=== PATIENT | male | born 1985 | race Caucasian/White ===

== ENCOUNTER 2017-09-05 20:48 | Inpatient (IN) | payer OTHER ==
[2017-09-05] MEDS: IV NORMAL SALINE 1000ML BAG 1,000 ML IV (07:52)
[2017-09-05] MEDS: ASPIRIN CHEWABLE 81 MG TABLET. PO (21:15)
[2017-09-05] MEDS ORDERED: NITROGLYCERIN OINT 1 GM PACKET. (21:15)
[2017-09-05] MEDS ORDERED: NITROGLYCERIN SUBLINGUAL 0.4 MG BOTTLE OF 25. SL ×2 (21:15→22:30)
[2017-09-05] MEDS ORDERED: ASPIRIN 325 MG TABLET (21:15)
[2017-09-05 21:22] LABS: ADD MAN DIFF? NO
[2017-09-05 21:25] LABS: BASO # 0.1 x10^3/uL (0.0-0.2); BASO % 1 % (0-3); EOS % 2 % (0-3); HEMATOCRIT 47.1 % (39.0-53.0); LYMPH % 30 % (24-48); MEAN CORPUSCULAR HEMOGLOBIN 31 pg (25-35); MEAN CORPUSCULAR HGB CONC 34 g/dL (31-37); MEAN CORPUSCULAR VOLUME 91 fL (79-100); MONO % 11 % (0-9); NEUT % 56 % (31-73); PLATELET COUNT 233 x10^3/uL (140-400); RED BLOOD COUNT 5.17 x10^6/uL (4.30-5.70); RED CELL DISTRIBUTION WIDTH 13.3 % (11.5-14.5)
[2017-09-05] MEDS: NITROGLYCERIN OINT 1 GM PACKET. TP (21:29)
[2017-09-05] MEDS: NITROGLYCERIN SUBLINGUAL 0.4 MG BOTTLE OF 25. SL (21:30)
[2017-09-05 21:48] LABS: ANION GAP 14 (6-14); BLOOD UREA NITROGEN 12 mg/dL (8-26); BUN/CREATININE RATIO 12 (6-20); CARBON DIOXIDE 25 mmol/L (21-32); CHLORIDE 102 mmol/L (98-107); GFR 87.2; GLUCOSE 127 mg/dL (70-99); POTASSIUM 4.3 mmol/L (3.5-5.1); SODIUM 141 mmol/L (136-145)
[2017-09-05 21:53] LABS: ALBUMIN 4.1 g/dL (3.4-5.0); ALBUMIN/GLOBULIN RATIO 1.2 (1.0-1.7); ALK PHOS 48 U/L (46-116); ALT (SGPT) 63 U/L (16-63); AST (SGOT) 36 U/L (15-37); TOTAL BILIRUBIN 0.2 mg/dL (0.2-1.0); TOTAL PROTEIN 7.5 g/dL (6.4-8.2)
[2017-09-05 21:56] LABS: TROPONINI < 0.017 ng/mL (0.000-0.055)
[2017-09-05] MEDS ORDERED: ONDANSETRON PF 4 MG/2 ML VIAL. IV (22:30)
[2017-09-05] MEDS ORDERED: MORPHINE SULFATE 4 MG/ML DISP.SYRIN. IV (22:30)
[2017-09-06] MEDS: IV NORMAL SALINE 1000ML BAG 1,000 ML IV ×2 (00:22→07:50)
[2017-09-06] MEDS: ACETAMINOPHEN 325 MG TABLET. PO (04:08)
[2017-09-06 05:29] LABS: TROPONINI < 0.017 ng/mL (0.000-0.055)
[2017-09-06 10:50] LABS: TROPONINI < 0.017 ng/mL (0.000-0.055)
== END 2017-09-06 14:45 | disposition home or self-care (01) | DRG 313 ==
LOC: ER 20:48 → 5 NORTH 22:43
DX: R07.89 Other chest pain (principal); Z68.41 Body mass index [BMI] 40.0-44.9, adult; I10 Essential (primary) hypertension; E66.9 Obesity, unspecified; Z82.49 Family history of ischemic heart disease and other diseases of the circulatory system; Z87.891 Personal history of nicotine dependence; Z88.2 Allergy status to sulfonamides
CPT/HCPCS: 36415; 71010; 78452; 80053; 84484; 85025; 93005; 93017; 96374; 99406; A9500; J7030

== ENCOUNTER 2020-10-02 00:40 | Observation (INO) | payer OTHER ==
[~2020-10-02] VITALS: Ht 175.3 cm; Wt 112.2 kg
[2020-10-02] VITALS (8 sets, daily range): BP systolic 110–154; BP diastolic 53–113
[~2020-10-02 00:40] MED LIST: AMLO-187 PO; BUPR300T92 PO; CETI10TA74 PO; LISI20TA18 PO; LOSA100T14 PO; METO-269 PO
[2020-10-02] MEDS ORDERED: ONDANSETRON PF 4 MG/2 ML VIAL. IVP ONE (01:15)
[2020-10-02] MEDS ORDERED: IV NORMAL SALINE 1000ML BAG 1,000 ML IV SCH (01:15)
[2020-10-02] MEDS ORDERED: CONTRAST GIVEN. MC PRN (01:45)
[2020-10-02] MEDS ORDERED: IOHEXOL 300 MG/ML 100ML VIAL. IV ONE (01:45)
--- NOTE | 2020-10-02 01:45 | PHYS DOC ---
Past Medical History Past Medical History: Hypertension, Other Additional Past Medical Histor: ABNORMAL HEART RHYTHM Past Surgical History: Tonsillectomy Additional Past Surgical Histo: Adenoids Smoking Status: Current Every Day Smoker Alcohol Use: Occasionally Drug Use: None Adult General Chief Complaint Chief Complaint: MULTIPLE COMPLAINTS HPI HPI Patient is a 35 year old male with no significant past medical history presenting the emergency department complaining of new onset of abdominal pain. Patient states that over the last 8 hours he has been having worsening sensation of pain primarily in the lower abdominal region. Patient said that since that time he is also been feeling generally unwell sensation of chills. Has not 1 episode of nonbloody numbers vomiting. Denies any chest pain, diarrhea, dysuria pyuria Review of Systems Review of Systems Constitutional: Denies fever or chills [] Eyes: Denies change in visual acuity, redness, or eye pain [] HENT: Denies nasal congestion or sore throat [] Respiratory: Denies cough or shortness of breath [] Cardiovascular: No additional information not addressed in HPI [] GI: Denies abdominal pain, nausea, vomiting, bloody stools or diarrhea [] : Denies dysuria or hematuria [] Musculoskeletal: Denies back pain or joint pain [] Integument: Denies rash or skin lesions [] Neurologic: Denies headache, focal weakness or sensory changes [] Endocrine: Denies polyuria or polydipsia [] All other systems were reviewed and found to be within normal limits, except as documented in this note. Current Medications Current Medications Current Medications Medications (Trade) Dose Ordered Sig/Abdi Start Time Stop Time Status Last Admin Dose Admin Cefazolin Sodium (Ancef) 1 gm 1X ONCE 10/02/20 03:45 10/02/20 03:47 DC 10/02/20 03:57 1 GM Info (CONTRAST GIVEN -- Rx MONITORING) 1 each PRN DAILY PRN 10/02/20 01:45 10/04/20 01:44 Iohexol (Omnipaque 300 Mg/ml) 75 ml 1X ONCE 10/02/20 01:45 10/02/20 01:46 DC 10/02/20 02:49 75 ML Ketorolac Tromethamine (Toradol 15mg Vial) 15 mg 1X ONCE 10/02/20 03:45 10/02/20 03:47 DC 10/02/20 03:54 15 MG Metronidazole 100 ml @ 100 mls/hr 1X ONCE 10/02/20 03:45 10/02/20 04:44 DC 10/02/20 03:59 100 MLS/HR Morphine Sulfate (Morphine Sulfate) 4 mg PRN Q2HR PRN 10/02/20 04:00 10/02/20 11:34 DC 10/02/20 06:11 4 MG Ondansetron HCl (Zofran) 4 mg PRN Q8HRS PRN 10/02/20 04:00 10/02/20 11:34 DC Sodium Chloride 1,000 ml @ 1,000 mls/hr Q1H 10/02/20 01:15 10/02/20 02:14 DC 10/02/20 01:35 1,000 MLS/HR Allergies Allergies Physical Exam Physical Exam Constitutional: Well developed, well nourished, no acute distress, non-toxic appearance. [] HENT: Normocephalic, atraumatic, bilateral external ears normal, oropharynx moist, no oral exudates, nose normal. [] Eyes: PERRLA, EOMI, conjunctiva normal, no discharge. [] Neck: Normal range of motion, no tenderness, supple, no stridor. [] Cardiovascular:Heart rate regular rhythm, no murmur [] Lungs & Thorax: Bilateral breath sounds clear to auscultation [] Abdomen: Bowel sounds normal, soft, right lower quadrant tenderness without significant guarding or rebound, no masses, no pulsatile masses. [] Skin: Warm, dry, no erythema, no rash. [] Back: No tenderness, no CVA tenderness. [] Extremities: No tenderness, no cyanosis, no clubbing, ROM intact, no edema. [] Neurologic: Alert and oriented X 3, normal motor function, normal sensory function, no focal deficits noted. [] Psychologic: Affect normal, judgement normal, mood normal. [] Current Patient Data Vital Signs Vital Signs Date Time Temp Pulse Resp B/P (MAP) Pulse Ox O2 Delivery O2 Flow Rate FiO2 10/02/20 04:24 84 128/69 (88) 96 Room Air 10/02/20 03:55 18 10/02/20 00:49 97.8 97.8 Lab Values Laboratory Tests Test 10/02/20 01:30 10/02/20 01:50 10/02/20 04:41 White Blood Count 18.2 x10^3/uL (4.0-11.0) H Red Blood Count 4.83 x10^6/uL (4.30-5.70) Hemoglobin 15.1 g/dL (13.0-17.5) Hematocrit 44.1 % (39.0-53.0) Mean Corpuscular Volume 91 fL (79-100) Mean Corpuscular Hemoglobin 31 pg (25-35) Mean Corpuscular Hemoglobin Concent 34 g/dL (31-37) Red Cell Distribution Width 13.2 % (11.5-14.5) Platelet Count 199 x10^3/uL (140-400) Neutrophils (%) (Auto) 85 % (31-73) H Lymphocytes (%) (Auto) 6 % (24-48) L Monocytes (%) (Auto) 9 % (0-9) Eosinophils (%) (Auto) 0 % (0-3) Basophils (%) (Auto) 0 % (0-3) Neutrophils # (Auto) 15.4 x10^3/uL (1.8-7.7) H Lymphocytes # (Auto) 1.0 x10^3/uL (1.0-4.8) Monocytes # (Auto) 1.7 x10^3/uL (0.0-1.1) H Eosinophils # (Auto) 0.0 x10^3/uL (0.0-0.7) Basophils # (Auto) 0.0 x10^3/uL (0.0-0.2) Segmented Neutrophils % 77 % (35-66) H Band Neutrophils % 12 % (0-9) H Lymphocytes % 8 % (24-48) L Monocytes % 3 % (0-10) Platelet Estimate Adequate (ADEQUATE) Sodium Level 140 mmol/L (136-145) Potassium Level 3.7 mmol/L (3.5-5.1) Chloride Level 103 mmol/L (98-107) Carbon Dioxide Level 24 mmol/L (21-32) Anion Gap 13 (6-14) Blood Urea Nitrogen 12 mg/dL (8-26) Creatinine 0.8 mg/dL (0.7-1.3) Estimated GFR (Cockcroft-Gault) 110.7 BUN/Creatinine Ratio 15 (6-20) Glucose Level 123 mg/dL (70-99) H Calcium Level 8.9 mg/dL (8.5-10.1) Total Bilirubin 0.8 mg/dL (0.2-1.0) Direct Bilirubin 0.1 mg/dL (0.0-0.2) Aspartate Amino Transferase (AST) 18 U/L (15-37) Alanine Aminotransferase (ALT) 41 U/L (16-63) Alkaline Phosphatase 50 U/L (46-116) Total Protein 7.3 g/dL (6.4-8.2) Albumin 3.9 g/dL (3.4-5.0) Albumin/Globulin Ratio 1.1 (1.0-1.7) Lipase 75 U/L (73-393) Urine Collection Type Unknown Urine Color Yellow Urine Clarity Clear Urine pH 6.5 (<5.0-8.0) Urine Specific [place] 1.020 (1.000-1.030) Urine Protein Negative mg/dL (NEG-TRACE) Urine Glucose (UA) Negative mg/dL (NEG) Urine Ketones (Stick) >=80 mg/dL (NEG) Urine Blood Negative (NEG) Urine Nitrite Negative (NEG) Urine Bilirubin Negative (NEG) Urine Urobilinogen Dipstick 0.2 mg/dL (0.2 mg/dL) Urine Leukocyte Esterase Negative (NEG) Urine RBC 1-2 /HPF (0-2) Urine WBC 1-4 /HPF (0-4) Urine Squamous Epithelial Cells None /LPF Urine Bacteria 0 /HPF (0-FEW) Urine Mucus Slight /LPF SARS-CoV-2 Antigen (Rapid) Negative (NEGATIVE) Laboratory Tests 10/02/20 01:30 Laboratory Tests 10/02/20 01:30 EKG EKG [] Radiology/Procedures Radiology/Procedures [] Course & Med Decision Making Course & Med Decision Making Pertinent Labs and Imaging studies reviewed. (See chart for details) 35-year-old male presenting with new onset of right lower quadrant abdominal pain with tenderness as well as nausea and vomiting. At this time will obtain abdominal labs and plan for CT scan with contrast to be sure there is no evidence of acute appendicitis. CT scan demonstrating acute appendictiis. Discussed with surgical team, patient admitted, started on IV fluids with anticipated surgery for tomorrow Dragon Disclaimer Dragon Disclaimer This electronic medical record was generated, in whole or in part, using a voice recognition dictation system. Departure Departure Disposition: 09 ADMITTED INPT THIS HOSP Condition: GOOD Referrals: NURY SCHNEIDER MD (PCP) IBAN GORDON MD Oct 02, 2020 01:45
[2020-10-02 01:46] LABS: BASO % 0 % (0-3); EOS % 0 % (0-3); HEMATOCRIT 44.1 % (39.0-53.0); HEMOGLOBIN 15.1 g/dL (13.0-17.5); LYMPH % 6 % (24-48); MEAN CORPUSCULAR HEMOGLOBIN 31 pg (25-35); MEAN CORPUSCULAR HGB CONC 34 g/dL (31-37); MEAN CORPUSCULAR VOLUME 91 fL (79-100); MONO # 1.7 x10^3/uL (0.0-1.1); MONO % 9 % (0-9); NEUT # 15.4 x10^3/uL (1.8-7.7); NEUT % 85 % (31-73); PLATELET COUNT 199 x10^3/uL (140-400); RED BLOOD COUNT 4.83 x10^6/uL (4.30-5.70); RED CELL DISTRIBUTION WIDTH 13.2 % (11.5-14.5); WHITE BLOOD COUNT 18.2 x10^3/uL (4.0-11.0)
[2020-10-02 02:01] LABS: CALCIUM 8.9 mg/dL (8.5-10.1); CREATININE 0.8 mg/dL (0.7-1.3); GFR 110.7; POTASSIUM 3.7 mmol/L (3.5-5.1)
[2020-10-02 02:06] LABS: ALBUMIN 3.9 g/dL (3.4-5.0); ALBUMIN/GLOBULIN RATIO 1.1 (1.0-1.7); DIRECT BILIRUBIN 0.1 mg/dL (0.0-0.2); TOTAL BILIRUBIN 0.8 mg/dL (0.2-1.0); TOTAL PROTEIN 7.3 g/dL (6.4-8.2)
[2020-10-02 02:08] LABS: BILIRUBIN,URINE NEGATIVE (NEG); CLARITY,URINE CLEAR; COLOR,URINE YELLOW; NITRITE,URINE NEGATIVE (NEG); PH,URINE 6.5 (<5.0-8.0); PROTEIN,URINE NEGATIVE (NEG-TRACE); UROBILINOGEN,URINE 0.2 mg/dL (0.2 mg/dL)
[2020-10-02 02:26] LABS: BACTERIA,URINE 0 /HPF (0-FEW)
[2020-10-02 02:52] LABS: % BANDS 12 % (0-9); % LYMPHS 8 % (24-48); % MONOS 3 % (0-10); % SEGS 77 % (35-66); PLT ESTIMATE ADEQUATE (ADEQUATE)
--- NOTE | 2020-10-02 03:28 | RAD ---
PQRS Compliance Statement: One or more of the following individualized dose reduction techniques were utilized for this examinat ion: 1. Automated exposure control 2. Adjustment of the mA and/or kV according to patient size 3. Use of iterative reconstruction technique CT ABDOMEN+PELVIS W Clinical Indication: Reason: abdominal pain, nausea, vomiting, weakness, cough, headache, shortness o f breath. Comparison: None. Technique: Helical CT imaging of the abdomen and pelvis is performed after 75 cc of Omnipaque 300 IV contrast. Oral contrast not administered. Findings: Mild groundglass opacities in the posterior left lower lobe. Minimal groundglass opacities posterior right lower lobe. Cardiac size normal. There is cholelithiasis. The liver, spleen, pancreas, and adrenal glands are normal. Abdominal aorta is normal caliber. There are bilateral round hypodensities of the kidneys that measure about a centim eter that are not definitively cysts. Largest hypodensities in the lower pole the right kidney and me asures 2.4 cm. This hypodensity has ill-defined margins. There is no hydronephrosis. There is no obvious abnormality of the stomach. There is no dilated small bowel. There is an appendic olith at the base of the appendix. There is a second appendicolith near the tip. The appendix is dila donnie measuring up to 1.4 cm in diameter. There is mild periappendiceal inflammation. There is no perfo ration. There is no periappendiceal abscess. There is mild sigmoid colon diverticulosis. There is no abdominal adenopathy or free fluid. The urinary bladder is normal. The prostate and seminal vesicles are normal. There is no pelvic free fluid. There is no acute bone abnormality. There is posterior disc osteophyte complex of T12/L1 resulting in moderate central canal stenosis. IMPRESSION: 1. Acute appendicitis. 2. Cholelithiasis. 3. There are bilateral renal hypodensities that are not definitely cysts. Recommend nonemergent steffanie l ultrasound. 4. Mild sigmoid colon diverticulosis. Electronically signed by: Easton Yan MD (10/02/2020 3:25 AM) [facility]
[2020-10-02] MEDS ORDERED: KETOROLAC 15 MG/ML VIAL. IVP ONE (03:45)
[2020-10-02] MEDS ORDERED: ceFAZolin SODIUM IV Push 1 GM VIAL. IVP ONE ×2 (03:45→10:11)
[2020-10-02] MEDS ORDERED: MORPHINE SULFATE 4 MG/ML VIAL. IV ONE (03:45)
[2020-10-02] MEDS ORDERED: MORPHINE SULFATE 4 MG/ML VIAL. IV PRN (04:00)
[2020-10-02] MEDS ORDERED: ONDANSETRON PF 4 MG/2 ML VIAL. IV PRN ×2 (04:00→11:00)
--- NOTE | 2020-10-02 06:23 | NUR ---
Pt. eats a keto diet Addendum: 10/02/20 at 0636 by RYAN BAKER RN Amended: Links added.
--- NOTE | 2020-10-02 06:42 | NUR ---
Pt. arrived on unit at 0600 by wheelchair from ED. Pt. is alert but is complaining of abdominal pain. Pain medication given around this time. Admission questions are done, as well as surgery consents. Call light is within reach with bed in lowest position. Will continue to monitor.
[2020-10-02] MEDS ORDERED: fentaNYL PF VIAL 100 MCG/2 ML VIAL IVP PRN ×2 (08:00)
[2020-10-02] MEDS ORDERED: MORPHINE SULFATE 2 MG/ML VIAL. IVP PRN (08:00)
[2020-10-02] MEDS ORDERED: PROCHLORPERAZINE 10 MG/2 ML VIAL. IVP PRN (08:00)
[2020-10-02] MEDS ORDERED: HYDROmorphone 2 MG/ML VIAL IVP PRN (08:00)
[2020-10-02] MEDS ORDERED: IV RINGERS,LACTATED 1000ML 1,000 ML IV SCH (08:00)
--- NOTE | 2020-10-02 08:27 | PDOC1 ---
History and Physical Date of Admission Date of Admission DATE: 10/02/20 TIME: 08:24 Identification/Chief Complaint Chief Complaint Right lower quadrant abdominal pain Source Source: Chart review, Patient History of Present Illness History of Present Illness 35-year-old male with 18-hour history of right lower quadrant abdominal pain nausea worsening pain prompted him to come to the emergency department for further evaluation CT scan shows signs consistent with acute appendicitis without rupture abscess. Incidental findings of cholelithiasis and diverticulosis of the sigmoid colon Past Medical History Cardiovascular: Other (Irregular heartbeat) Pulmonary: No pertinent hx GI: No pertinent hx Heme/Onc: No pertinent hx Hepatobiliary: No pertinent hx Psych: No pertinent hx Rheumatologic: No pertinent hx Infectious disease: No pertinent hx ENT: No pertinent hx Renal/: No pertinent hx Endocrine: No pertinent hx Dermatology: No pertinent hx Past Surgical History Past Surgical History: No pertinent history Family History Family History: No Significant, Heart Disease Family History: Parent Social History Smoke: <1 pack per day ALCOHOL: occassional Drugs: None Current Medications Current Medications Current Medications Sodium Chloride 1,000 ml @ 1,000 mls/hr Q1H IV Last administered on 10/02/20at 01:35; Start 10/02/20 at 01:15; Stop 10/02/20 at 02:14; Status DC Ondansetron HCl (Zofran) 4 mg 1X ONCE IVP Last administered on 10/02/20at 01:35; Start 10/02/20 at 01:15; Stop 10/02/20 at 01:17; Status DC Iohexol (Omnipaque 300 Mg/ml) 75 ml 1X ONCE IV Last administered on 10/02/20at 02:49; Start 10/02/20 at 01:45; Stop 10/02/20 at 01:46; Status DC Info (CONTRAST GIVEN -- Rx MONITORING) 1 each PRN DAILY PRN MC SEE COMMENTS; Start 10/02/20 at 01:45; Stop 10/04/20 at 01:44 Cefazolin Sodium (Ancef) 1 gm 1X ONCE IVP Last administered on 10/02/20at 03:57; Start 10/02/20 at 03:45; Stop 10/02/20 at 03:47; Status DC Metronidazole 100 ml @ 100 mls/hr 1X ONCE IV Last administered on 10/02/20at 03:59; Start 10/02/20 at 03:45; Stop 10/02/20 at 04:44; Status DC Morphine Sulfate (Morphine Sulfate) 4 mg 1X ONCE IV Last administered on 10/02/20at 03:55; Start 10/02/20 at 03:45; Stop 10/02/20 at 03:47; Status DC Ketorolac Tromethamine (Toradol 15mg Vial) 15 mg 1X ONCE IVP Last administered on 10/02/20at 03:54; Start 10/02/20 at 03:45; Stop 10/02/20 at 03:47; Status DC Ondansetron HCl (Zofran) 4 mg PRN Q8HRS PRN IV NAUSEA/VOMITING; Start 10/02/20 at 04:00; Stop 10/03/20 at 03:59 Morphine Sulfate (Morphine Sulfate) 4 mg PRN Q2HR PRN IV PAIN Last administered on 10/02/20at 06:11; Start 10/02/20 at 04:00; Stop 10/03/20 at 03:59 Fentanyl Citrate (Fentanyl 2ml Vial) 25 mcg PRN Q5MIN PRN IVP MILD PAIN 1-3; Start 10/02/20 at 08:00; Stop 10/03/20 at 07:59 Fentanyl Citrate (Fentanyl 2ml Vial) 50 mcg PRN Q5MIN PRN IVP MODERATE PAIN 4- 6; Start 10/02/20 at 08:00; Stop 10/03/20 at 07:59 Morphine Sulfate (Morphine Sulfate) 1 mg PRN Q10MIN PRN IVP SEVERE PAIN 7-10; Start 10/02/20 at 08:00; Stop 10/03/20 at 07:59 Ringer's Solution 1,000 ml @ 30 mls/hr Q24H IV ; Start 10/02/20 at 08:00; Stop 10/02/20 at 19:59 Hydromorphone HCl (Dilaudid) 0.5 mg PRN Q10MIN PRN IVP SEVERE PAIN 7-10, 2nd CHOICE; Start 10/02/20 at 08:00; Stop 10/03/20 at 07:59 Prochlorperazine Edisylate (Compazine) 5 mg PACU PRN PRN IVP NAUSEA, MRX1; Start 10/02/20 at 08:00; Stop 10/03/20 at 07:59 Active Scripts Active Reported Amlodipine Besylate 10 Mg Tablet 10 Mg PO HS Bupropion Xl (Bupropion Hcl) 300 Mg Tab.er.24h 1 Tab PO DAILY Toprol Xl (Metoprolol Succinate) 50 Mg Tab.er.24h 1 Tab PO DAILY Losartan Potassium 100 Mg Tablet 100 Mg PO DAILY Zyrtec (Cetirizine Hcl) 10 Mg Tablet 10 Mg PO Allergies Allergies: Coded Allergies: Sulfa (Sulfonamide Antibiotics) (Verified Allergy, Mild, 07/14/14) ROS Gastrointestinal: Yes Nausea, Yes Abdominal Pain Physical Exam General: Alert, Oriented X3, Cooperative, mild distress HEENT: Atraumatic, EOMI Lungs: Clear to auscultation, Normal air movement Heart: RRR, no murmurs Abdomen: Normal bowel sounds, Soft, Other (Tender to palpation right lower quadrant) Rectal Exam: not examined Extremities: No edema Skin: No significant lesion Neuro: Normal speech Psych/Mental Status: Mental status NL Vitals Vitals Vital Signs Date Time Temp Pulse Resp B/P (MAP) Pulse Ox O2 Delivery O2 Flow Rate FiO2 10/02/20 07:29 Room Air 10/02/20 06:00 98.0 85 18 111/71 (84) 95 98.0 Labs Labs Laboratory Tests Test 10/02/20 01:30 10/02/20 01:50 10/02/20 04:41 White Blood Count 18.2 x10^3/uL (4.0-11.0) Red Blood Count 4.83 x10^6/uL (4.30-5.70) Hemoglobin 15.1 g/dL (13.0-17.5) Hematocrit 44.1 % (39.0-53.0) Mean Corpuscular Volume 91 fL (79-100) Mean Corpuscular Hemoglobin 31 pg (25-35) Mean Corpuscular Hemoglobin Concent 34 g/dL (31-37) Red Cell Distribution Width 13.2 % (11.5-14.5) Platelet Count 199 x10^3/uL (140-400) Neutrophils (%) (Auto) 85 % (31-73) Lymphocytes (%) (Auto) 6 % (24-48) Monocytes (%) (Auto) 9 % (0-9) Eosinophils (%) (Auto) 0 % (0-3) Basophils (%) (Auto) 0 % (0-3) Neutrophils # (Auto) 15.4 x10^3/uL (1.8-7.7) Lymphocytes # (Auto) 1.0 x10^3/uL (1.0-4.8) Monocytes # (Auto) 1.7 x10^3/uL (0.0-1.1) Eosinophils # (Auto) 0.0 x10^3/uL (0.0-0.7) Basophils # (Auto) 0.0 x10^3/uL (0.0-0.2) Segmented Neutrophils % 77 % (35-66) Band Neutrophils % 12 % (0-9) Lymphocytes % 8 % (24-48) Monocytes % 3 % (0-10) Platelet Estimate Adequate (ADEQUATE) Sodium Level 140 mmol/L (136-145) Potassium Level 3.7 mmol/L (3.5-5.1) Chloride Level 103 mmol/L (98-107) Carbon Dioxide Level 24 mmol/L (21-32) Anion Gap 13 (6-14) Blood Urea Nitrogen 12 mg/dL (8-26) Creatinine 0.8 mg/dL (0.7-1.3) Estimated GFR (Cockcroft-Gault) 110.7 BUN/Creatinine Ratio 15 (6-20) Glucose Level 123 mg/dL (70-99) Calcium Level 8.9 mg/dL (8.5-10.1) Total Bilirubin 0.8 mg/dL (0.2-1.0) Direct Bilirubin 0.1 mg/dL (0.0-0.2) Aspartate Amino Transf (AST/SGOT) 18 U/L (15-37) Alanine Aminotransferase (ALT/SGPT) 41 U/L (16-63) Alkaline Phosphatase 50 U/L (46-116) Total Protein 7.3 g/dL (6.4-8.2) Albumin 3.9 g/dL (3.4-5.0) Albumin/Globulin Ratio 1.1 (1.0-1.7) Lipase 75 U/L (73-393) Urine Collection Type Unknown Urine Color Yellow Urine Clarity Clear Urine pH 6.5 (<5.0-8.0) Urine Specific [place] 1.020 (1.000-1.030) Urine Protein Negative mg/dL (NEG-TRACE) Urine Glucose (UA) Negative mg/dL (NEG) Urine Ketones (Stick) >=80 mg/dL (NEG) Urine Blood Negative (NEG) Urine Nitrite Negative (NEG) Urine Bilirubin Negative (NEG) Urine Urobilinogen Dipstick 0.2 mg/dL (0.2 mg/dL) Urine Leukocyte Esterase Negative (NEG) Urine RBC 1-2 /HPF (0-2) Urine WBC 1-4 /HPF (0-4) Urine Squamous Epithelial Cells None /LPF Urine Bacteria 0 /HPF (0-FEW) Urine Mucus Slight /LPF SARS-CoV-2 Antigen (Rapid) Negative (NEGATIVE) Laboratory Tests Test 10/02/20 01:30 10/02/20 01:50 10/02/20 04:41 White Blood Count 18.2 x10^3/uL (4.0-11.0) Red Blood Count 4.83 x10^6/uL (4.30-5.70) Hemoglobin 15.1 g/dL (13.0-17.5) Hematocrit 44.1 % (39.0-53.0) Mean Corpuscular Volume 91 fL (79-100) Mean Corpuscular Hemoglobin 31 pg (25-35) Mean Corpuscular Hemoglobin Concent 34 g/dL (31-37) Red Cell Distribution Width 13.2 % (11.5-14.5) Platelet Count 199 x10^3/uL (140-400) Neutrophils (%) (Auto) 85 % (31-73) Lymphocytes (%) (Auto) 6 % (24-48) Monocytes (%) (Auto) 9 % (0-9) Eosinophils (%) (Auto) 0 % (0-3) Basophils (%) (Auto) 0 % (0-3) Neutrophils # (Auto) 15.4 x10^3/uL (1.8-7.7) Lymphocytes # (Auto) 1.0 x10^3/uL (1.0-4.8) Monocytes # (Auto) 1.7 x10^3/uL (0.0-1.1) Eosinophils # (Auto) 0.0 x10^3/uL (0.0-0.7) Basophils # (Auto) 0.0 x10^3/uL (0.0-0.2) Segmented Neutrophils % 77 % (35-66) Band Neutrophils % 12 % (0-9) Lymphocytes % 8 % (24-48) Monocytes % 3 % (0-10) Platelet Estimate Adequate (ADEQUATE) Sodium Level 140 mmol/L (136-145) Potassium Level 3.7 mmol/L (3.5-5.1) Chloride Level 103 mmol/L (98-107) Carbon Dioxide Level 24 mmol/L (21-32) Anion Gap 13 (6-14) Blood Urea Nitrogen 12 mg/dL (8-26) Creatinine 0.8 mg/dL (0.7-1.3) Estimated GFR (Cockcroft-Gault) 110.7 BUN/Creatinine Ratio 15 (6-20) Glucose Level 123 mg/dL (70-99) Calcium Level 8.9 mg/dL (8.5-10.1) Total Bilirubin 0.8 mg/dL (0.2-1.0) Direct Bilirubin 0.1 mg/dL (0.0-0.2) Aspartate Amino Transf (AST/SGOT) 18 U/L (15-37) Alanine Aminotransferase (ALT/SGPT) 41 U/L (16-63) Alkaline Phosphatase 50 U/L (46-116) Total Protein 7.3 g/dL (6.4-8.2) Albumin 3.9 g/dL (3.4-5.0) Albumin/Globulin Ratio 1.1 (1.0-1.7) Lipase 75 U/L (73-393) Urine Collection Type Unknown Urine Color Yellow Urine Clarity Clear Urine pH 6.5 (<5.0-8.0) Urine Specific [place] 1.020 (1.000-1.030) Urine Protein Negative mg/dL (NEG-TRACE) Urine Glucose (UA) Negative mg/dL (NEG) Urine Ketones (Stick) >=80 mg/dL (NEG) Urine Blood Negative (NEG) Urine Nitrite Negative (NEG) Urine Bilirubin Negative (NEG) Urine Urobilinogen Dipstick 0.2 mg/dL (0.2 mg/dL) Urine Leukocyte Esterase Negative (NEG) Urine RBC 1-2 /HPF (0-2) Urine WBC 1-4 /HPF (0-4) Urine Squamous Epithelial Cells None /LPF Urine Bacteria 0 /HPF (0-FEW) Urine Mucus Slight /LPF SARS-CoV-2 Antigen (Rapid) Negative (NEGATIVE) VTE Prophylaxis Ordered VTE Prophylaxis Devices: Yes VTE Pharmacological Prophylaxi: Contraindicated Assessment/Plan Assessment/Plan Acute appendicitis plan laparoscopic appendectomy Justifications for Admission Other Justification SHELLY DORANTES MD Oct 02, 2020 08:26
[2020-10-02] MEDS ORDERED: ONDANSETRON PF 4 MG/2 ML VIAL. ONE (09:36)
[2020-10-02] MEDS ORDERED: LIDOCAINE 2% PF 5 ML VIAL. ONE (09:36)
[2020-10-02] MEDS ORDERED: PROPOFOL 10 MG/ML (20ML) VIAL. IV ONE (09:36)
[2020-10-02] MEDS ORDERED: MIDAZOLAM HCL/PF 2 MG/2 ML VIAL. ONE (09:36)
[2020-10-02] MEDS ORDERED: fentaNYL PF VIAL 250 MCG/5 ML VIAL ONE (09:36)
[2020-10-02] MEDS ORDERED: DEXAMETHASONE SOD PHOS 4 MG/ML VIAL ONE (09:36)
[2020-10-02] MEDS ORDERED: ROCURONIUM 50 MG/5 ML VIAL. ONE (09:36)
[2020-10-02] MEDS ORDERED: BUPIVACAINE-EPI 0.25% 30 ML VIAL KIT. ONE (09:43)
[2020-10-02] MEDS ORDERED: SUCCINYLCHOLINE 200 MG/10 ML VIAL. ONE (10:06)
[2020-10-02] MEDS ORDERED: NEOSTIGMINE METHYLSULFATE 5 MG/5 ML SYRINGE. ONE (10:27)
[2020-10-02] MEDS ORDERED: GLYCOPYRROLATE 1 MG/5 ML VIAL. ONE (10:27)
[2020-10-02] MEDS ORDERED: KETOROLAC 30 MG/ML VIAL. ONE (10:38)
[2020-10-02] MEDS ORDERED: SEVOFLURANE 61 TO 120 MINUTES. IH ONE (10:51)
--- NOTE | 2020-10-02 10:53 | PDOC4 ---
Operative Note Operative Note Date: October [id number] at 1049 Preoperative diagnosis: Acute appendicitis Postoperative diagnosis: Same Procedure: Laparoscopic appendectomy Surgeon: Chemo Specimen: Appendix Dictation: Patient is 35-year-old male with right lower quadrant abdominal pain and a CT scan showing signs consistent with acute appendicitis. Procedure of laparoscopic appendectomy was explained to the patient in detail all risk benefits were also discussed including bleeding infection injury to intra- abdominal contents possible necessitating further open operations alternatives to this procedure also discussed with the patient who seemed to understand and gave both verbal and written consent to have the procedure performed. Patient was taken to the operating room placed in the supine position general anesthesia was initiated once patient was sleeping in bed his abdomen was prepped and draped usual sterile fashion using ChloraPrep. Area just above the umbilicus injected quarter percent Marcaine with epinephrine incision was made 11 blade scalpel and a varies needle was placed within the abdomen creating pneumoperitoneum once this was complete 12 mm port was placed in a 5 mm camera is placed within the abdomen which was inspected was noted that the appendix was inflamed with some exudate. No free fluid. A 5 mm port was placed in the right midabdomen and a 5 mm port was placed low in the left lower quadrant. The appendix was grasped retracted towards the anterior abdominal wall a window was propagated the base of the appendix through the mesoappendix with a [place] dissector a Endo DUANE stapler was used to staple and transect the base of the appendix a second load was used to staple and transect the mesoappendix. Append ix was then removed with an Endo Catch bag from the umbilicus right lower quadrant pelvis were irrigated and suctioned dry hemostasis deemed be appropriate the pneumoperitoneum was reduced all ports removed the fascial defect at the umbilicus was closed with a [id number] 0 Vicryl suture and the skin was reapproximated all port sites for subcuticular Monocryl Mastisol Steri-Strips and island dressings were applied. Patient was awakened and extubated operating room taken to recovery in stable condition all sponge instrument needle counts listed as correct estimated blood loss 20 mL SHELLY DORANTES MD Oct 02, 2020 10:52
[2020-10-02] MEDS ORDERED: MORPHINE SULFATE 2 MG/ML VIAL. IV PRN (11:00)
[2020-10-02] MEDS ORDERED: oxyCODONE/APAP 5/325 1 TAB TABLET PO PRN ×2 (11:00)
[2020-10-02] MEDS ORDERED: 0.9 % SODIUM CHLORIDE 10 ML DISP.SYRIN. IV PRN (11:00)
[2020-10-02] MEDS: IV DEXTROSE 5%-LACT RINGERS 1,000 ML IV SCH (11:37)
[2020-10-02] MEDS: KETOROLAC 15 MG/ML VIAL. IV SCH ×2 (12:19→16:25)
[2020-10-02] MEDS: cefOXitin SODIUM IV Push 1 GM VIAL. IVP SCH ×2 (12:21→19:16)
[2020-10-03] MEDS: KETOROLAC 15 MG/ML VIAL. IV SCH ×2 (00:11→06:04)
[2020-10-03] MEDS: IV DEXTROSE 5%-LACT RINGERS 1,000 ML IV SCH (00:56)
[2020-10-03 03:21] VITALS: BP 113/64
[2020-10-03] MEDS: cefOXitin SODIUM IV Push 1 GM VIAL. IVP SCH (05:27)
[2020-10-03 07:16] VITALS: BP 122/68
[2020-10-03 08:40] LABS: BASO % 0 % (0-3); EOS # 0.1 x10^3/uL (0.0-0.7); EOS % 1 % (0-3); HEMATOCRIT 40.7 % (39.0-53.0); HEMOGLOBIN 13.7 g/dL (13.0-17.5); LYMPH # 2.1 x10^3/uL (1.0-4.8); LYMPH % 28 % (24-48); MEAN CORPUSCULAR HEMOGLOBIN 31 pg (25-35); MEAN CORPUSCULAR HGB CONC 34 g/dL (31-37); MEAN CORPUSCULAR VOLUME 93 fL (79-100); MONO # 0.7 x10^3/uL (0.0-1.1); MONO % 9 % (0-9); NEUT # 4.7 x10^3/uL (1.8-7.7); NEUT % 62 % (31-73); PLATELET COUNT 177 x10^3/uL (140-400); RED CELL DISTRIBUTION WIDTH 13.2 % (11.5-14.5); WHITE BLOOD COUNT 7.6 x10^3/uL (4.0-11.0)
[2020-10-03 09:06] LABS: CALCIUM 8.4 mg/dL (8.5-10.1); CREATININE 0.9 mg/dL (0.7-1.3); GFR 96.6; POTASSIUM 3.4 mmol/L (3.5-5.1)
--- NOTE | 2020-10-03 09:36 | NUR ---
SW following. Discussed with RN, pt from home, room air, regular diet, rapid COVID-19 negative. Pt had surgery 10/02/20. RN anticipates pt may be able to discharge home today with self care. RN advised no SW needs at this time. SW will continue to follow.
[2020-10-03 10:32] VITALS: BP 129/73
[2020-10-03] MEDS ORDERED: OXYC1TAB15 PO (11:06)
--- NOTE | 2020-10-03 11:08 | DISCH ---
DISCHARGE INSTRUCTIONS Condition on Discharge Condition on Discharge: Stable Activity After Discharge Activity Instructions for Disc: Activity as tolerated Other activity instructions: can shower Lifting Instructions after Dis: No heavy lifting, No pulling or pushing Diet after Discharge Diet after Discharge: Regular Wound Incision Care Wound/Incision Care: May get incision wet, No wound care needed Contacting the after DC Call your doctor for: If your condition worsens Follow-Up Follow up with: Dr Mclain 2 weeks, call to schedule [phone] DENA CARPENTER APRN Oct 03, 2020 11:07
--- NOTE | 2020-10-03 11:09 | PDOC3 ---
Discharge Summary Visit Information Date of Admission: Oct 02, 2020 Date of Discharge: Oct 03, 2020 Admitting Diagnosis: acute appendicitis Final Diagnosis acute appendicitis Brief Hospital Course Allergies Allergies Coded Allergies Type Severity Reaction Last Updated Verified Sulfa (Sulfonamide Antibiotics) Allergy Intermediate 10/02/20 Yes Vital Signs Vital Signs Date Time Temp Pulse Resp B/P (MAP) Pulse Ox O2 Delivery O2 Flow Rate FiO2 10/03/20 10:32 97.9 83 18 129/73 (91) 95 Room Air 97.9 10/02/20 10:59 10 Lab Results Laboratory Tests Test 10/02/20 01:30 10/02/20 01:50 10/02/20 04:41 10/03/20 08:05 White Blood Count 18.2 x10^3/uL (4.0-11.0) 7.6 x10^3/uL (4.0-11.0) Red Blood Count 4.83 x10^6/uL (4.30-5.70) 4.40 x10^6/uL (4.30-5.70) Hemoglobin 15.1 g/dL (13.0-17.5) 13.7 g/dL (13.0-17.5) Hematocrit 44.1 % (39.0-53.0) 40.7 % (39.0-53.0) Mean Corpuscular Volume 91 fL (79-100) 93 fL (79-100) Mean Corpuscular Hemoglobin 31 pg (25-35) 31 pg (25-35) Mean Corpuscular Hemoglobin Concent 34 g/dL (31-37) 34 g/dL (31-37) Red Cell Distribution Width 13.2 % (11.5-14.5) 13.2 % (11.5-14.5) Platelet Count 199 x10^3/uL (140-400) 177 x10^3/uL (140-400) Neutrophils (%) (Auto) 85 % (31-73) 62 % (31-73) Lymphocytes (%) (Auto) 6 % (24-48) 28 % (24-48) Monocytes (%) (Auto) 9 % (0-9) 9 % (0-9) Eosinophils (%) (Auto) 0 % (0-3) 1 % (0-3) Basophils (%) (Auto) 0 % (0-3) 0 % (0-3) Neutrophils # (Auto) 15.4 x10^3/uL (1.8-7.7) 4.7 x10^3/uL (1.8-7.7) Lymphocytes # (Auto) 1.0 x10^3/uL (1.0-4.8) 2.1 x10^3/uL (1.0-4.8) Monocytes # (Auto) 1.7 x10^3/uL (0.0-1.1) 0.7 x10^3/uL (0.0-1.1) Eosinophils # (Auto) 0.0 x10^3/uL (0.0-0.7) 0.1 x10^3/uL (0.0-0.7) Basophils # (Auto) 0.0 x10^3/uL (0.0-0.2) 0.0 x10^3/uL (0.0-0.2) Segmented Neutrophils % 77 % (35-66) Band Neutrophils % 12 % (0-9) Lymphocytes % 8 % (24-48) Monocytes % 3 % (0-10) Platelet Estimate Adequate (ADEQUATE) Sodium Level 140 mmol/L (136-145) 143 mmol/L (136-145) Potassium Level 3.7 mmol/L (3.5-5.1) 3.4 mmol/L (3.5-5.1) Chloride Level 103 mmol/L (98-107) 107 mmol/L (98-107) Carbon Dioxide Level 24 mmol/L (21-32) 26 mmol/L (21-32) Anion Gap 13 (6-14) 10 (6-14) Blood Urea Nitrogen 12 mg/dL (8-26) 9 mg/dL (8-26) Creatinine 0.8 mg/dL (0.7-1.3) 0.9 mg/dL (0.7-1.3) Estimated GFR (Cockcroft-Gault) 110.7 96.6 BUN/Creatinine Ratio 15 (6-20) Glucose Level 123 mg/dL (70-99) 136 mg/dL (70-99) Calcium Level 8.9 mg/dL (8.5-10.1) 8.4 mg/dL (8.5-10.1) Total Bilirubin 0.8 mg/dL (0.2-1.0) Direct Bilirubin 0.1 mg/dL (0.0-0.2) Aspartate Amino Transf (AST/SGOT) 18 U/L (15-37) Alanine Aminotransferase (ALT/SGPT) 41 U/L (16-63) Alkaline Phosphatase 50 U/L (46-116) Total Protein 7.3 g/dL (6.4-8.2) Albumin 3.9 g/dL (3.4-5.0) Albumin/Globulin Ratio 1.1 (1.0-1.7) Lipase 75 U/L (73-393) Urine Collection Type Unknown Urine Color Yellow Urine Clarity Clear Urine pH 6.5 (<5.0-8.0) Urine Specific [place] 1.020 (1.000-1.030) Urine Protein Negative mg/dL (NEG-TRACE) Urine Glucose (UA) Negative mg/dL (NEG) Urine Ketones (Stick) >=80 mg/dL (NEG) Urine Blood Negative (NEG) Urine Nitrite Negative (NEG) Urine Bilirubin Negative (NEG) Urine Urobilinogen Dipstick 0.2 mg/dL (0.2 mg/dL) Urine Leukocyte Esterase Negative (NEG) Urine RBC 1-2 /HPF (0-2) Urine WBC 1-4 /HPF (0-4) Urine Squamous Epithelial Cells None /LPF Urine Bacteria 0 /HPF (0-FEW) Urine Mucus Slight /LPF SARS-CoV-2 Antigen (Rapid) Negative (NEGATIVE) Laboratory Tests Test 10/03/20 08:05 White Blood Count 7.6 x10^3/uL (4.0-11.0) Red Blood Count 4.40 x10^6/uL (4.30-5.70) Hemoglobin 13.7 g/dL (13.0-17.5) Hematocrit 40.7 % (39.0-53.0) Mean Corpuscular Volume 93 fL (79-100) Mean Corpuscular Hemoglobin 31 pg (25-35) Mean Corpuscular Hemoglobin Concent 34 g/dL (31-37) Red Cell Distribution Width 13.2 % (11.5-14.5) Platelet Count 177 x10^3/uL (140-400) Neutrophils (%) (Auto) 62 % (31-73) Lymphocytes (%) (Auto) 28 % (24-48) Monocytes (%) (Auto) 9 % (0-9) Eosinophils (%) (Auto) 1 % (0-3) Basophils (%) (Auto) 0 % (0-3) Neutrophils # (Auto) 4.7 x10^3/uL (1.8-7.7) Lymphocytes # (Auto) 2.1 x10^3/uL (1.0-4.8) Monocytes # (Auto) 0.7 x10^3/uL (0.0-1.1) Eosinophils # (Auto) 0.1 x10^3/uL (0.0-0.7) Basophils # (Auto) 0.0 x10^3/uL (0.0-0.2) Sodium Level 143 mmol/L (136-145) Potassium Level 3.4 mmol/L (3.5-5.1) Chloride Level 107 mmol/L (98-107) Carbon Dioxide Level 26 mmol/L (21-32) Anion Gap 10 (6-14) Blood Urea Nitrogen 9 mg/dL (8-26) Creatinine 0.9 mg/dL (0.7-1.3) Estimated GFR (Cockcroft-Gault) 96.6 Glucose Level 136 mg/dL (70-99) Calcium Level 8.4 mg/dL (8.5-10.1) Brief Hospital Course Mr. Anderson is a 35 old male with acute appendicitis. Underwent laparoscopic appendectomy. . Postoperatively tolerating diet, ambulating and ready for discharge home Discharge Information Condition at Discharge: Stable Follow Up: Weeks (2) Disposition/Orders: D/C to Home Scheduled Amlodipine Besylate (Amlodipine Besylate) 10 Mg Tablet, 10 MG PO HS, (Reported) Entered as Reported by: NIA BAPTISTE on 09/06/1726 Last Action: Reviewed on 10/02/20617 by RYAN BAKER Bupropion Hcl (Bupropion Xl) 300 Mg Tab.er.24h, 1 TAB PO DAILY, #30 Ref 2 (Reported) Entered as Reported by: NIA BAPTISTE on 09/06/1726 Last Action: Reviewed on 10/02/20617 by RYAN BAKER Losartan Potassium (Losartan Potassium) 100 Mg Tablet, 100 MG PO DAILY, (Reported) Entered as Reported by: NIA BAPTISTE on 09/06/1726 Last Action: Reviewed on 10/02/20617 by RYAN BAKER Metoprolol Succinate (Toprol Xl) 50 Mg Tab.er.24h, 1 TAB PO DAILY, #30 Ref 5 (Reported) Entered as Reported by: NIA BAPTISTE on 09/06/1726 Last Action: Reviewed on 10/02/20617 by RYAN BAKER Scheduled PRN Oxycodone/Apap 5-325 (Percocet 5-325 Mg Tablet ) 1 Each Tablet, 1 TAB PO PRN Q4HRS PRN for MILD PAIN, 1ST CHOICE, #30 Ref 0 Prescribed by: Dena Uriarte on 10/03/20 1106 Miscellaneous Medications Cetirizine Hcl (Zyrtec) 10 Mg Tablet, 10 MG PO, (Reported) Entered as Reported by: Yves Govea on 07/14/144 Last Action: Reviewed on 10/02/20617 by RYAN BAKER Justicifation of Admission Dx: Justifications for Admission: Justification of Admission Dx: Yes Comments: acute appendicitis DENA URIARTE [employer] Oct 03, 2020 11:09
--- NOTE | 2020-10-03 12:09 | NUR ---
Pt discharged to home with Rx, verbalized understanding of discharge instructions. Lap sites x 3, CDI.
== END 2020-10-03 13:10 | disposition home or self-care (01) ==
LOC: ER 00:40 → 4 NORTH 04:46
PROVIDERS: ADMIT Surgery; ATTEND Surgery
DX: K35.30 Acute appendicitis with localized peritonitis, without perforation or gangrene (principal); Z20.828 Contact with and (suspected) exposure to other viral communicable diseases; I49.9 Cardiac arrhythmia, unspecified; K35.80 Unspecified acute appendicitis; K57.30 Diverticulosis of large intestine without perforation or abscess without bleeding; I10 Essential (primary) hypertension; F17.210 Nicotine dependence, cigarettes, uncomplicated; Z90.49 Acquired absence of other specified parts of digestive tract
CPT/HCPCS: 36415; 44970; 74177; 80048; 80053; 80076; 81001; 83690; 85007; 85025; 87426; 96361; 96365; 96375; 96376; 99285; G0378; J0330; J0690; J0694; J1100; J1885; J2270; J2405; J2704; J2710; J3010; J3490; J7030; J7120; J7121; Q9967; U0003; 88304; G0379; J2250